=== PATIENT | male | born 1940 | race Caucasian/White ===

== ENCOUNTER 2017-05-25 19:31 | Emergency (ER) | payer BC ==
[2017-05-25 20:32] LABS: HEMATOCRIT 39.2 % (42.0-54.0); MEAN CORPUSCULAR HEMOGLOBIN 29.2 pg (29.0-35.0); RED BLOOD COUNT 4.45 X 10^6uL (4.20-6.10); WHITE BLOOD COUNT 5.9 X 10^3uL (3.9-10.7)
[2017-05-25 20:33] LABS: BASOPHILS 0.7 % (0.0-2.0); EOSINOPHILS 1.4 % (0.0-6.0); LYMPHOCYTES 35.1 % (20.0-40.0); MEAN CORPUS. HGB CONCENTRATION 33.2 g/dL (32.0-36.0); MEAN PLATELET VOLUME 8.7 fL (7.4-10.4); MONOCYTES 11.3 % (2.0-10.0); NEUTROPHILS 51.5 % (54.0-75.0); RED CELL DISTRIBUTION WIDTH 13.9 % (11.5-14.5)
[2017-05-25 20:34] LABS: EOSINOPHILS# 0.1 X 10^3uL (0.0-0.4); LYMPHOCYTES# 2.1 X 10^3uL (0.8-3.8); MONOCYTES# 0.7 X 10^3uL (0.2-1.0)
[2017-05-25 20:35] LABS: CALCIUM 9.1 mg/dL (8.4-10.2); POTASSIUM 4.1 mmol/L (3.5-5.1)
[2017-05-25] MEDS ORDERED: FUROSEMIDE 20 MG/2 ML VIAL ONE (21:44)
--- NOTE | 2017-05-25 22:16 | ER PHYSICIAN DOCUMENTATION ---
Physician Documentation [facility] Name:Aris Holland Age:77 yrs Sex:Male :1940 Arrival Date:05/25/2017 Time:19:31 Bed3 Private MD: Rj Gates Disposition: 05/26 00:08 Critical Care: not applicable. Chart complete. tl1 Disposition: 05/25/17 21:42 Discharged to Home/Self Care. Impression: CHF (Congestive Heart Failure). - Condition is Good. - Discharge Instructions: CHF, General. - Medical Reconciliation form form. - Follow up: James Christensen MD; When: Tomorrow; Reason: Recheck today's complaints. - Problem is new. - Symptoms have improved. - Notes: OK TO INCREASE LASIX TO 60 MG A DAY FOR NOW, UNTIL YOU GET DOWN TO YOUR NORMAL DRY WEIGHT. MAKE SURE TO GET SEEN IN THE CARDIOLOGY CLINIC TOMORROW. SEE IF YOU CAN BRING YOUR RECENT CARDIOLOGY REPORTS TO CLINIC WITH YOU,INCLUDING THE LAST CLINIC NOTE FROM YOUR [employer] OPERATOR. HPI: 05/25 19:38 This 77 yrs old Male presents to ER with complaints of Breathing Difficulty. cd 19:40 He has a long h/o MMP, including CAD, CHF, a fib, s/p ablation x 2, and CLL. In march this year, he was hospitalized in [place] for CHF, AFib where he underwent cardioversion and had a cardiac cath that was unremarkable. His EF reportedly was 25% at that time but a more recent echo a week or so ago showed his EF back up to 50-55%. He also has a h/o sleep apnea and uses CPAP. 2 days ago they started to drive out from [place], and spent yesterday in [place] before driving to today. On arrival, he noted worsening dyspnea at rest and a RA pulse ox of 83-85%, and came here for evaluation. He thinks his weight has increased to 168# from his usual of 162-163#. He denies cough, f/c/s, LE pain or swelling, hemoptysis. + h/o PE after GB surgery years ago. Currently on Eliquis.. Historical: - Allergies: No known drug Allergies; - Home Meds: 1. See Scanned list - PMHx: See Scanned list; - Tetanus: < 10 years. - Ebola Screening: : Patient negative for fever greater than or equal to 101.5 degrees Fahrenheit, and additional compatible Ebola Virus Disease symptoms. Patient denies exposure to infectious person. Patient denies travel to an Ebola-affected area in the 21 days before illness onset. . - Immunization history: Pneumococcal vaccine is up to date, Flu Vaccine < 1 year Flu Vaccine None Flu Vaccine < 1 year. - Social history: Smoking status: Patient states was never smoker of tobacco. ROS: 20:00 Respiratory: Positive for dyspnea on exertion, shortness of breath, Negative for cough, tl1 hemoptysis, pleurisy, sputum production, wheezing. 20:00 All other systems are negative. Exam: 20:00 Constitutional: This is a well developed, well nourished patient who is awake, alert, tl1 and in no acute distress. Head/Face: Normocephalic, atraumatic. Eyes: Pupils equal round and reactive to light, extra-ocular motions intact. Lids and lashes normal. Conjunctiva and sclera are non-icteric and not injected. Cornea within normal limits. Periorbital areas with no swelling, redness, or edema. 20:00 Neck: Trachea midline, no thyromegaly or masses palpated, and no cervical tl1 lymphadenopathy. Supple, full range of motion without nuchal rigidity, or vertebral point tenderness. No Meningismus. 20:00 Cardiovascular: Rate: normal, Rhythm: regular, Heart sounds: normal, Edema: is not appreciated, JVD: is not appreciated. 20:00 Respiratory: the patient does not display signs of respiratory distress, Respirations: normal, Breath sounds: are normal, no decreased breath sounds, no rales, rhonchi, no stridor, no wheezing. 20:00 Abdomen/GI: Inspection: abdomen appears normal, Palpation: abdomen is soft and non-tender. 20:00 Musculoskeletal/extremity: Exam is negative for acute changes. 20:00 Skin: Exam negative for acute changes. 20:00 Neuro: Exam negative for acute changes. Vital Signs: 19:40 BP 124 / 82; Pulse 86; Resp 17; Temp 98.0; Pulse Ox 82% on R/A; Weight 74.84 kg; Height em1 5 ft. 10 in. (177.80 cm); Pain 0/10; 20:40 BP 110 / 70 (auto/); mk2 20:44 Pulse 77 MON; Resp 14; Pulse Ox 94% ; mk2 21:00 BP 94 / 66 (auto/); mk2 21:04 Pulse 75 MON; Resp 17; Pulse Ox 95% ; mk2 21:34 Pulse 74 MON; Resp 22; mk2 21:34 BP 132 / 61; Pulse 74; Pulse Ox 95% on 2 lpm NC; Pain 0/10; mk2 19:40 Body Mass Index 23.67 (74.84 kg, 177.80 cm) em1 MDM: 19:38 Patient medically screened. cd 19:58 Med List attached lp 19:58 Med List attached lp 20:07 Response to treatment: the patient's symptoms have mildly improved after treatment. tl1 Special discussion: His BNP is elevated; he says his usual is in the 3,000 range. His weight is up from baseline. He does not want to be admitted tonight and would rather go back to his room at the [facility] tonight and f/u tomorrow in the cardiology clinic. He has a pulse ox and his will titrate his O2 tonight to greater than 90%. He took an extra 20 mg of lasix this morning and he received 40 mg of IV Lasix tonight in the ED. I suspect his dyspnea is related to a mild exacerbation of his CHF and the altitude. No evidence for PE, [place], pneumonia, or RAD. doubt pericardial effusion but that could be ruled out tomorrow in cardiology clinic with an Echo.. 21:30 Differential diagnosis: Anemia Anxiety Reaction Bronchitis CHF exacerbation, Myocardial tl1 Infarction pneumonia, pulmonary edema, Pulmonary Embolism Unstable Angina. Antibiotic administration: Not indicated. The patient's pulmonary embolism risk score was calculated as follows: the patient has a history of a previous deep vein thrombosis or pulmonary embolism (1.5 Pts) Total Score: 0-2 points. This patient was found to be at low risk for a pulmonary embolism by using the Well's assessment criteria. Data reviewed: vital signs, nurses notes, lab test result(s), cardiac enzymes, CBC, electrolytes, hepatic panel, EKG, radiologic studies, plain films, and as a result, I will discharge patient, Give Lasix tonight and set him up for home O2. F/U tomorrow in the cardiology clinic.. Data interpreted: senior ecologist: Pulse oximetry:. Test interpretation: by ED physician or midlevel provider: plain radiologic studies, ECG. Counseling: I had a detailed discussion with the patient and/or guardian regarding: the historical points, exam findings, and any diagnostic results supporting the discharge/admit diagnosis, lab results, radiology results, the need for outpatient follow up, to return to the emergency department if symptoms worsen or persist or if there are any questions or concerns that arise at home. ECG:. 05/25 20:35 Order name: CBC AUTO DIF, MDIF/RMOR IF IND; Complete Time: 21:11 [facility] 05/25 21:11 Interpretation: WHITE BLOOD COUNT 5.9; HEMOGLOBIN 13.0; HEMATOCRIT 39.2; PLATELET COUNT tl1 110. 05/25 20:41 Order name: DDIMER; Complete Time: 21:11 [facility] 05/25 21:11 Interpretation: Normal: DDIMER 201. tl1 05/25 20:45 Order name: BASIC METABOLIC PANEL; Complete Time: 21:11 [facility] 05/25 21:11 Interpretation: SODIUM 137; POTASSIUM 4.1; CHLORIDE 105; CARBON DIOXIDE 20; GLUCOSE tl1 137; BLOOD UREA NITROGEN 22; CREATININE 1.5; CALCIUM 9.1. 05/25 20:45 Order name: BNP,NT-PRO; Complete Time: 21:11 [facility] 05/25 21:12 Interpretation: Abnormal: BNP,NT-PRO 5000. 1 05/26 16:58 Order name: CXR 2V 60329 [facility] 05/25 19:58 Order name: 12-lead EKG; Complete Time: 20:44 cd 05/25 23:48 Interpretation: SEE NOTE. 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 1 05/25 19:58 Order name: Continuous Cardiac Monitoring; Complete Time: 20:03 cd 05/25 19:58 Order name: I & O; Complete Time: 20:03 cd 05/25 19:58 Order name: Iv Saline Lock; Complete Time: 20:03 cd 05/25 19:58 Order name: Oxygen; Complete Time: 20:03 cd 05/25 19:58 Order name: Pulse Ox Continuous; Complete Time: 20:03 cd EC:07 Rate is 81 beats/min. Rhythm is regular, Normal Sinus Rhythm. QRS [place] is Normal. [place] tl1 interval is normal at 205 msec. QRS interval is normal at 98 msec. QT interval is normal at 501 msec. Q waves are Present in leads III, aVF, V1. T waves are Normal. No ST changes noted. 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 Abnormal R wave progression; late transition. Interpreted by me. Reviewed by me. Dispensed Medications: 22:13 Drug: Lasix 100 mg; Route: IVP; Site: left antecubital; [facility] 22:14 Follow up: Response: No adverse reaction [facility] Signatures: Janelle Chau, RN RN lp Mike Washington MD MD cd Kruger, Meg, RN RN mk2 Rj Germain MD MD tl1
--- NOTE | 2017-05-25 22:16 | ER NURSING DOCUMENTATION ---
Nurse's Notes [facility] Name:Aris Holland Age:77 yrs Sex:Male :1940 Arrival Date:05/25/2017 Time:19:31 Bed3 Private MD: Diagnosis:CHF (Congestive Heart Failure) Presentation: 05/25 19:38 Acuity: HOME 3 lp 19:54 Presenting complaint: Patient states: SOB. Transition of care: Home. Notified ED lp Physician of Dr. Germain notified. 19:54 Method Of Arrival: Private Vehicle lp Triage Assessment: 19:58 General: Appears in no apparent distress, Behavior is appropriate for age. Pain: Denies lp pain. Respiratory: Reports shortness of breath on exertion Onset: The symptoms/episode began/occurred this morning, the patient has mild shortness of breath. Historical: - Allergies: No known drug Allergies; - Home Meds: 1. See Scanned list - PMHx: See Scanned list; - Tetanus: < 10 years. - Ebola Screening: : Patient negative for fever greater than or equal to 101.5 degrees Fahrenheit, and additional compatible Ebola Virus Disease symptoms. Patient denies exposure to infectious person. Patient denies travel to an Ebola-affected area in the 21 days before illness onset. . - Immunization history: Pneumococcal vaccine is up to date, Flu Vaccine < 1 year Flu Vaccine None Flu Vaccine < 1 year. - Social history: Smoking status: Patient states was never smoker of tobacco. Screenin:59 Infectious Disease Risk None. Abuse screen: Denies threats or abuse. Denies injuries lp from another. Nutritional screening: No deficits noted. Assessment: 19:59 Cardiovascular: Rhythm is sinus rhythm. Respiratory: Airway is patent Respiratory lp effort is even, unlabored, Breath sounds are clear. Vital Signs: 19:40 BP 124 / 82; Pulse 86; Resp 17; Temp 98.0; Pulse Ox 82% on R/A; Weight 74.84 kg; Height em1 5 ft. 10 in. (177.80 cm); Pain 0/10; 20:40 BP 110 / 70 (auto/); mk2 20:44 Pulse 77 MON; Resp 14; Pulse Ox 94% ; mk2 21:00 BP 94 / 66 (auto/); mk2 21:04 Pulse 75 MON; Resp 17; Pulse Ox 95% ; mk2 21:34 Pulse 74 MON; Resp 22; mk2 21:34 BP 132 / 61; Pulse 74; Pulse Ox 95% on 2 lpm NC; Pain 0/10; mk2 19:40 Body Mass Index 23.67 (74.84 kg, 177.80 cm) em1 ED Course: 19:35 Patient arrived in ED. jl 19:38 Triage completed. lp 19:38 Mike Washington MD is Attending Physician. cd 19:54 Janelle Chau RN is Primary Nurse. lp 19:58 Med List attached lp 19:58 Med List attached lp 19:59 Valuables Remains with patient Patient has correct armband on for positive lp identification. Placed in gown. Bed in low position. Call light in reach. 20:17 Inserted saline lock: 20 gauge in left antecubital area and blood collected. em1 20:26 Patient moved to radiology. pm1 20:34 Patient moved back from radiology. pm1 20:57 Attending Physician role handed off by Mike Washington MD tl1 20:57 Rj Germain MD is Attending Physician. tl1 21:23 Report received from Janelle Reese cardiac monitor on. Pulse ox on. NIBP on. Warm blanket mk2 given. 21:41 James Christensen MD is Referral Physician. tl1 Administered Medications: 22:13 Drug: Lasix 100 mg; Route: IVP; Site: left antecubital; mk2 22:14 Follow up: Response: No adverse reaction mk2 Outcome: 21:34 Discharge instructions given to patient, family, Instructed on discharge instructions, mk2 follow up and referral plans. medication usage. 21:34 IV D/Artemio 21:42 Discharge ordered by . tl1 22:14 Discharged to home ambulatory, With oxygen from [employer] mk2 22:14 Condition: improved 22:15 Patient left the ED. mk2 07 10:19 Discharge F/U Call: Unable to reach: no answer lp Signatures: Janelle Chau, JB [place] Mike Washington MD MD Machelle Meeks RN RN mk2 Henri Han pm1 [employer], [employer] em1 Rj Germain MD MD tl1 Espinoza Mcallister
--- NOTE | 2017-05-26 16:31 | RADIOLOGY REPORT ---
Two views of the chest, without prior films for comparison, demonstrate the heart and vessels to be unremarkable. The right hemidiaphragm is elevated. Lung boss are clear. IMPRESSION: Elevation of the right hemidiaphragm. MTDD
== END 2017-05-25 22:16 | disposition home or self-care (01) ==
LOC: ER 19:31
DX: I50.20 Unspecified systolic (congestive) heart failure (principal); R06.09 Other forms of dyspnea; R06.02 Shortness of breath; R79.89 Other specified abnormal findings of blood chemistry; R94.31 Abnormal electrocardiogram [ECG] [EKG]; I25.2 Old myocardial infarction; I25.10 Atherosclerotic heart disease of native coronary artery without angina pectoris; I48.91 Unspecified atrial fibrillation; Z79.01 Long term (current) use of anticoagulants; Z79.899 Other long term (current) drug therapy
CPT/HCPCS: 71020; 80048; 83880; 85025; 85379; 93005; 96374; 99284; J1940